=== PATIENT | male | born 1990 | race Two or more races ===

== ENCOUNTER 2023-01-25 22:52 | Emergency (ER) | payer OTHER ==
[~2023-01-25] VITALS: Ht 188 cm; Wt 102.1 kg
== END 2023-01-26 03:03 | disposition home or self-care (01) ==
LOC: ER 22:52
DX: M94.0 Chondrocostal junction syndrome [Tietze] (principal); R07.81 Pleurodynia; R10.9 Unspecified abdominal pain

== ENCOUNTER 2024-06-24 09:52 | Emergency (ER) | payer OTHER ==
[~2024-06-24] VITALS: Ht 188 cm; Wt 102.1 kg
[2024-06-24] MEDS ORDERED: ACETAMINOPHEN 500 MG GEL..CAP PO ONE ×2 (13:15→13:20)
[2024-06-24 14:04] LABS: HEMATOCRIT 44.6 % (39.0-48.0); HEMOGLOBIN 15.2 g/dL (13-16.00); MEAN CELL VOLUME 84.6 fL (80.0-100.00); MEAN CORPUSCULAR HEMOGLOBIN 28.8 pg (27.00-32.0); PLATELET COUNT 203 K/uL (150-450); RED BLOOD COUNT 5.27 M/uL (4.00-6.00); RED CELL DISTRIBUTION WIDTH 14.1 % (11.5-14.5)
== END 2024-06-24 14:58 | disposition home or self-care (01) ==
LOC: ER 09:55
PROVIDERS: General Practice
DX: B34.9 Viral infection, unspecified (principal); Z20.822 Contact with and (suspected) exposure to COVID-19

== ENCOUNTER 2024-11-29 11:17 | Outpatient (CLI) | payer OTHER ==
[~2024-11-29 11:17] MED LIST: DICLOFENAC SOD100 MG PO; METAXALONE800 MG PO
== END 2024-11-29 11:26 | disposition home or self-care (01) ==
LOC: RAD 11:17
PROVIDERS: ATTEND Physical Medicine & Rehabilitation
DX: M75.42 Impingement syndrome of left shoulder (principal)